=== PATIENT | female | born 1980 | race Caucasian/White ===

== ENCOUNTER 2022-10-28 23:18 | Emergency (ER) | payer MEDICAID, OTHER ==
[~2022-10-28] VITALS: Ht 172.7 cm; Wt 68.0 kg
[~2022-10-28 23:18] MED LIST: PREN-385 PO
[2022-10-28 23:24] VITALS: BP 112/64
--- NOTE | 2022-10-28 23:33 | NUR ---
PT TAKEN TO BED
--- NOTE | 2022-10-29 00:09 | NUR ---
JEFFD seen and evaluated patient.
[2022-10-29] MEDS ORDERED: SULF-59 PO (00:11)
[2022-10-29] MEDS ORDERED: CHLO480L2 TP (00:11)
[2022-10-29 00:19] VITALS: BP 112/64
--- NOTE | 2022-10-29 00:20 | NUR ---
Patient discharged with v/s stable. Written and verbal after care instructions given and explained. New rx hibiclenz, and bactrim. Patient verbalized understanding. Ambulatory with steady gait. All questions addressed prior to discharge. Advised to follow up with PMD.
== END 2022-10-29 02:20 | disposition home or self-care (01) ==
LOC: MED 23:18
DX: A49.02 Methicillin resistant Staphylococcus aureus infection, unspecified site (principal); Z79.899 Other long term (current) drug therapy
CPT/HCPCS: 99283

== ENCOUNTER 2022-10-31 03:35 | Emergency (ER) | payer MEDICAID ==
[~2022-10-31] VITALS: Ht 172.7 cm; Wt 68.0 kg
[~2022-10-31 03:35] MED LIST changes: +CHLO480L2 TP; +SULF-59 PO
[2022-10-31 03:42] VITALS: BP 136/92; PULSE 76; RESP 16; TEMP 98.5; O2SAT 100
--- NOTE | 2022-10-31 03:45 | NUR ---
PT AMBULATORY TO BED 04, BLEEDING CONTROLLED.
--- NOTE | 2022-10-31 03:46 | NUR ---
CORRECTION TO BED 03
--- NOTE | 2022-10-31 03:52 | NUR ---
PATIENT RESTING IN BED, A/OX4, CHEST RISE AND FALL SYMMETRICAL, NO S/S OF DISTRESS, ON MONITOR.
[2022-10-31] MEDS ORDERED: LIDOCAINE 1% 500 MG/ 50 ML VIAL INJ ONE (03:55)
[2022-10-31] MEDS ORDERED: LIDOCAINE MPF 1% 5 ML ONE (03:56)
--- NOTE | 2022-10-31 04:34 | NUR ---
APPLIED NON ADHERENT AND GAUZE ROLL TO WOUND ON ABOVE L KNEE.
[2022-10-31 04:35] VITALS: BP 131/85; PULSE 78; RESP 16; TEMP 98.4; O2SAT 100
--- NOTE | 2022-10-31 04:36 | NUR ---
Patient discharged with v/s stable. Written and verbal after care instructions given and explained. Patient verbalized understanding. Ambulatory with steady gait. All questions addressed prior to discharge. Advised to follow up with PMD.
== END 2022-10-31 04:36 | disposition home or self-care (01) ==
LOC: MED 03:35
DX: S71.112A Laceration without foreign body, left thigh, initial encounter (principal); Z79.899 Other long term (current) drug therapy; W26.0XXA Contact with knife, initial encounter; Y93.89 Activity, other specified; Y92.810 Car as the place of occurrence of the external cause; Y99.8 Other external cause status
CPT/HCPCS: 12002; 90471; 90715; 99283; J2001